=== PATIENT | male | born 1995 | race Caucasian/White ===

== ENCOUNTER → 2021-06-24 14:52 | Outpatient (CLI) | payer BC, SELFPAY ==
--- NOTE | ~2021-06-24 | CT_ITS ---
EXAMINATION: CT pelvis wo con DATE: 06/24/2021 15:12 INDICATION: Tailbone and low back pain. TECHNIQUE: High resolution computed tomography (CT) of the pelvis was performed without intravenous c ontrast. Additional sagittal and coronal reconstructions were performed. Automated exposure control a nd iterative reconstruction technique were employed. The dose-length product was 599.13 mGy-cm. COMPARISON: None FINDINGS: The caudal-most segment of the coccyx is angulated approximately 50 degrees to the right. No surround ing inflammatory stranding to suggest acute injury. Alignment is otherwise normal. No fracture. A cou ple large right os acetabula. Mild cystic change along the anterosuperior rim of the left acetabulum. There is bilateral decreased anterosuperior femoral head/neck offset with mild cystic change at the left anterosuperior femoral head neck junction. This along with the findings at the acetabula suggest the likelihood of cam-type femoral acetabular impingement. Bilateral sacroiliac joints are normal. L ikely developmentally unfused spinous process of S1. Bladder, prostate and visualized portions of the bowels are normal including a normal appendix. No free fluid in the pelvis. No pathologically enlarg ed pelvic or inguinal lymphadenopathy. Normal symmetric appearing musculature in the pelvis and proxi mal thighs. IMPRESSION: 1. 50 degree rightward angulation of the caudal-most coccygeal segment which may be developmental or sequela of old trauma. No adjacent inflammatory stranding to suggest an acute injury. 2. Constellation of findings at both hips suggesting possibility of cam-type femoral acetabular impin gement. Reviewed, dictated and finalized at location A. [facility] IMPRESSION: 1. 50 degree rightward angulation of the caudal-most coccygeal segment which ma y be developmental or sequela of old trauma. No adjacent inflammatory stranding to suggest an acute injury. 2. Constellation of findings at both hips suggesting possibility of cam-type fe moral acetabular impingement.
== END ==
PROVIDERS: Visit Provider Physician Assistant Medical
DX: M54.50 Low back pain, unspecified (principal); R93.7 Abnormal findings on diagnostic imaging of other parts of musculoskeletal system
CPT/HCPCS: 72192

== ENCOUNTER 2024-12-08 12:32 | Emergency (ER) | payer BC, SELFPAY ==
[2024-12-08 12:50] VITALS: BP 136/87; PULSE 81; RESP 16; TEMP 36.3; O2SAT 100
[2024-12-08 13:09] LABS: EDSTREPNEGPOS1 Negative (Negative)
--- NOTE | 2024-12-08 13:10 | ED.GENADULT ---
HPI - General Adult General Chief complaint: Upper Respiratory Infection Stated complaint: SORE THROAT/COUGH/FEVER Source: patient Mode of arrival: ambulatory Limitations: no limitations History of Present Illness HPI narrative: Pt presents for evaluation of sore throat for the past five days. He now has some sinus congestion and occasional cough. Yesterday he had a low grade fever. No nausea, vomiting, diarrhea. His grandmother recently had an upper respiratory infection. He tried taking Mucinex, and DayQuil for his symptoms. He does not smoke. He took two home COVID tests, both of which were negative. Related Data Allergies Allergy/AdvReac Type Severity Reaction Status Date / Time Sulfa (Sulfonamide Allergy Mild HIVES Verified 12/08/24 12:51 Antibiotics) Review of Systems Review of Systems: CONSTITUTIONAL: Reports low grade fever. Denies chills, or sweats. EYES: Denies visual changes, redness, or discharge. ENT: Reports sinus congestion and sore throat. Denies otalgia CARDIOVASCULAR: Denies chest pain, palpitations, or edema. RESPIRATORY:Reports cough. Denies dyspnea. GASTROINTESTINAL: Denies abdominal pain, nausea, vomiting, or diarrhea. GENITOURINARY: Denies dysuria or hematuria. SKIN: Denies rash or itching. MUSCULOSKELETAL: Denies back pain, joint pain, or myalgia. NEUROLOGIC: Denies headache, numbness, dizziness, or weakness. PSYCHIATRIC: Denies anxiety or depression. [facility] Past Medical History Medical History No pertinent past medical history Surgical History Surgical History No pertinent past surgical history Family History Family History Other No pertinent past surgical history Social History Social History Smoking status: Never smoker Alcohol intake: current Alcohol use details: social Substance use: current Substance use type: marijuana Last use: once weekly to relax & sleep Living arrangements: alone Occupation/Education: occupation Additional occupation/education comments: IT Gender identity (if verbalized by the patient): Male Exam Narrative: GENERAL: Well-appearing, well-nourished, and in no acute distress. HEAD: Normocephalic, atraumatic. EYES: PERRLA and EOMI. ENT: Nares clear, no rhinorrhea or epistaxis. Mucous membranes moist. Oropharynx without tonsillar hypertrophy exudate or other lesions. Bilateral TMs pearly zee nonbulging NECK: Supple. No adenopathy or masses. No carotid bruits or JVD CHEST: Clear to auscultation. No respiratory distress. No wheezes rales or rhonchi HEART: Regular rate and rhythm. No murmur heard. Normal peripheral pulses. ABDOMEN: Soft, nontender, nondistended, normal active bowel sounds. EXTREMITIES: Normal range of motion. No edema. SKIN: Warm, dry, no rash. NEURO: No focal deficits. Alert and oriented x3. PSYCH: Normal mood and affect. Course Course Emergency Course: This is a 29-year-old male who presented for evaluation of sick symptoms. Rapid strep negative. Will send throat culture. COVID x 2 at home negative. Through shared decision making opted to proceed with antibiotic therapy. Will discharge with Augmentin. Follow-up with primary to the ER for worsening symptoms. Patient in agreement with plan of care. Level of Care: Express Care Visit Vital Signs Vital signs: Vital Signs Temperature 36.3 C L 12/08/24 12:50 Pulse Rate 81 12/08/24 12:50 Respiratory Rate 16 12/08/24 12:50 Blood Pressure 136/87 12/08/24 12:50 Pulse Oximetry 100 12/08/24 12:50 Temperature 36.3 C L 12/08/24 12:50 Pulse Rate 81 12/08/24 12:50 Respiratory Rate 16 12/08/24 12:50 Blood Pressure 136/87 12/08/24 12:50 Pulse Oximetry 100 12/08/24 12:50 Medical Decision Making Vital Signs Vital Signs: Vital Signs Temperature 36.3 C L 12/08/24 12:50 Pulse Rate 81 12/08/24 12:50 Respiratory Rate 16 12/08/24 12:50 Blood Pressure 136/87 12/08/24 12:50 Pulse Oximetry 100 12/08/24 12:50 Temperature 36.3 C L 12/08/24 12:50 Pulse Rate 81 12/08/24 12:50 Respiratory Rate 16 12/08/24 12:50 Blood Pressure 136/87 12/08/24 12:50 Pulse Oximetry 100 12/08/24 12:50 Lab Data Labs: Lab Results 12/08/24 Range/Units 13:07 POC Grp A Strep Screen Negative (Negative) Discharge Plan Discharge Clinical Impression: Pharyngitis Patient Disposition: Home Condition: Stable Instructions: Antibiotic Form, Pharyngitis (ED) Patient Language: Luxembourgish Prescriptions: New amoxicillin-pot clavulanate 875-125 mg tablet 1 tablet PO Q12H Qty: 20 0RF Follow-up/Referrals: Elvira Marie PA-C [Primary Care Provider, Family Practice] Time of Disposition: 13:08
== END 2024-12-08 13:15 | disposition home or self-care (01) ==
PROVIDERS: Emergency Provider Nurse Practitioner; PCP Physician Assistant Medical
DX: J02.9 Acute pharyngitis, unspecified (principal)
CPT/HCPCS: 87081; 87880; 99213; G0463